=== PATIENT | female | born 1960 | race Caucasian/White ===

== ENCOUNTER 2017-04-06 13:30 | Observation (INO) | payer MEDICARE ==
[~2017-04-06] VITALS: Ht 160 cm; Wt 76.8 kg
[~2017-04-06 13:30] MED LIST: ALBU8.5H2 INHALATION; ATEN50TA PO; ATOR10TA66 PO; BECL8.7A6 IH; HYDR-3740 PO; LEVO150T46 PO; LORA2TAB PO; METF1000 PO; METF500T7 PO; MORP-33 PO; RANI150C4 PO; ROB500 PO; TRAZ-115 PO; marijuana
[2017-04-06 13:35] VITALS: BP 105/55; PULSE 78; RESP 15; O2SAT 99
--- NOTE | 2017-04-06 14:28 | DRSVH ---
PROCEDURE: X-RAY CHEST, TWO VIEWS ([id number]) INDICATIONS: SYNCOPE TECHNIQUE: 2 views of the chest were acquired. COMPARISON: 09/21/2015 FINDINGS: Surgical changes and devices: None. Lungs and pleura: No pleural effusions or pneumothorax. Lungs are clear. Mediastinum: Mediastinal contours are normal. Heart size is normal. Bones and chest wall: No suspicious bony abnormalities. Soft tissues appear unremarkable. IMPRESSION: No acute cardiopulmonary abnormality Dictated by: Richard Bui M.D. on 04/06/2017 at 14:25 Approved by: Richard Bui M.D. on 04/06/2017 at 14:26
[2017-04-06 14:33] LABS: EOSINOPHILS % (AUTO) 3.2 % (0-5); MONOCYTES % (AUTO) 8.1 % (4-12); Mean Corpuscular Hemoglobin 31.5 pg (27.0-35.0); Mean Corpuscular Volume 92.3 fL (81-100); NEUTROPHILS % (AUTO) 59.9 % (40-74); Platelet Count 351 bil/L (150-400)
[2017-04-06 14:52] LABS: TROPONIN T < 0.010 ug/L (0.0-0.011)
--- NOTE | 2017-04-06 15:02 | ED.REPORT ---
HPI-General Illness Date of Service Apr 06, 2017 ED Provider: James Lao MD A 56 year old female with a history of frequent GLF's and syncopal episodes, hypertension, diabetes mellitus, COPD, hypothyroidism, asthma and frequent UTI' s presents to the ED with right hip pain secondary to a syncopal episode resulting in a GLF that occurred last night. Patient reports several previous similar syncopal episodes that have been occurring for the past year and have become increasingly more frequent. The patient endorses chest tightness prior to her episode last night. Her episodes of syncope are often associated with weakness, lightheadedness, LOC and loss of memory. Recent cardiac workup one year ago was negative. Activity exacerbates the pain in her hip. The patient was seen at Urgent Care this afternoon and was sent to the ED for further evaluation. Patient also reports a recent cough and runny nose that began two weeks ago. She denies any nausea or vomiting associated with the episodes. Patient denies history of urinary retention bladder or bowel incontinence. Nursing Notes Stated Complaint: SYNCOPE Chief Complaint: General Complaint Nursing Notes Reviewed: Yes Allergies: Coded Allergies: Adhesives (Verified Allergy, Severe, skin tears/ blisters, 09/21/15) latex (Verified Allergy, Severe, blisters / skin tears, 09/21/15) piroxicam (Verified Allergy, Unknown, 04/05/16) acetaminophen (Verified Adverse Reaction, Unknown, 04/05/16) celecoxib (Verified Adverse Reaction, Unknown, 04/05/16) oxycodone (Verified Adverse Reaction, Unknown, 04/05/16) Uncoded Allergies: OFF spray (Allergy, Unknown, 06/25/14) Scheduled Albuterol HFA (Proair HFA) 8.5 Gm Hfa.aer.ad 2 PUFFS INHALATION Q4H Atorvastatin Calcium (Atorvastatin Calcium) 10 Mg Tablet 10 MG PO DAILY Beclomethasone Dipropionate (Qvar) 8.7 Gm Aer.w.adap 8.7 GM IH BID Levothyroxine (Levoxyl) 150 Mcg Tablet 150 MCG PO DAILY Lorazepam (Lorazepam) 2 Mg Tablet 2 MG PO TID Metformin (Glucophage) 1,000 Mg Tablet 1,500 MG PO DAILYWD before dinner Metformin ER (Metformin ER) 500 Mg Tab 1,000 MG PO DAILY Morphine Sulfate ER (Morphine Sulfate ER) 30 Mg Tablet 30 MG PO Q12Hr Ranitidine (Ranitidine) 150 Mg Capsule 150 MG PO BID Trazodone (Trazodone) 50 Mg Tablet 5 TAB PO HS Scheduled PRN Methocarbamol (Methocarbamol) 500 Mg Tablet 1-2 TAB PO QID PRN PRN For Spasm Miscellaneous Medications ([marijuana]) Atenolol (Atenolol) 50 Mg Tablet 50 MG PO Hydrocodone-Acetaminophen 10-325 mg (Hydrocodone-Acetaminophen 10-325 mg) 1 Each Tablet 1 TABLET PO General Time Seen by MD: 14:36 Chief Complaint Other (Syncope) Hx Obtained From: Patient Arrived By: Walk-in Sudden in Onset?: No Onset Occurred: Yesterday Symptom Duration: 1 - 15 minutes Location: : Hip right Quality: Painful Radiation: : Does not radiate Severity: Current: Moderate Severity: Maximum: Moderate Associated with: Reports: Cough, Nasal discharge, Syncope, Denies: Chest pain, Shortness of breath Pertinent Negative: Pt denies other symptoms Exacerbated by: Moving affected area, Standing up Recent Healthcare: No recent hospitalization, Recent doctor visit Past Medical History Past Medical History 1. Hypertension 2. Diabetes Mellitus 3. COPD 4. Hypothyroidism 5. Frequent UTI's 6. Asthma 7. Anxiety 8. Arthritis 9. Kidney stones 10. Cataracts 11. Frequent syncopal episodes No History of urinary retention or bladder Past Surgical History Endometriosis x4 Reports: Hysterectomy Smoking History Light Tobacco Smoker Social History Alcohol Use: Denies alcohol use Drug Use: Denies drug use Other Social History: Local resident Ambulatory Status Independent Review of Systems Full Review of Systems Constitutional: Denies: Fever Respiratory: Reports: Non-productive cough, Denies: Shortness of breath Cardiovascular: Reports: Chest pain, Palpitations, Syncope GI: Denies: Abdominal pain, Nausea, Vomiting Female: Denies: Incontinence, Urinary frequency, Urination decreased Musculoskeletal: Reports: Joint pain (Right hip pain) Endocrine: Denies: Weight loss Skin: Denies Unexplained bruises Allergy / Immune: Reports: Rhinorrhea Neurologic: Reports: Change LOC, Lightheaded, Syncope, Weakness Psychiatric: Reports: Anxiety Complete sys rev & neg: except as marked. Physical Exam Nursing note and vitals reviewed. Constitutional: Well-developed, well-nourished. Not diaphoretic. Head: Normocephalic and atraumatic. Mouth/Throat: Oropharynx is clear and moist. No oropharyngeal exudate. Eyes: EOM are normal. Pupils are equal, round, and reactive to light. Neck: Supple, no tracheal deviation. Cardiovascular: Normal rate, regular rhythm. Equal and intact distal pulses throughout. No murmur. Pulmonary/Chest: Effort normal and clear breath sounds. No respiratory distress. Abdominal: Soft. No distension. There is no tenderness, rebound, or guarding. Bowel sounds present. Musculoskeletal: Range of motion grossly intact, moving all extremities. Mild right hip and coccyx tenderness without evidence of bruising or hematoma. No edema appreciated. Pelvis is stable. Neurological: AOx3. Grossly nonfocal exam. Strength and sensation intact and equal to bilateral upper and lower extremities. Skin: Warm and dry, no rashes or pallor appreciated. Psychiatric: Appropriate mood and affect. Behavior appears normal. Vital Signs Vital Signs Date Time Temp Pulse Resp B/P Pulse Ox O2 Delivery O2 Flow Rate FiO2 04/06/17 17:16 63 16 109/41 98 Room Air 04/06/17 13:35 36.2 78 15 105/55 99 Room Air Interpretation & Diagnostics Lab Results Interpretation Result Diagram: 04/06/17 1420 04/06/17 1420 Test 04/06/17 14:20 White Blood Count 9.7th/mm3 (3.8-10.1) Red Blood Count 4.44mil/mm3 (3.90-5.20) Hemoglobin 14.0g/dL (12.0-15.6) Hematocrit 41.0% (35.0-46.0) Mean Corpuscular Volume 92.3fL (81-100) Mean Corpuscular Hemoglobin 31.5pg (27.0-35.0) Mean Corpuscular Hemoglobin Concent 34.1% (32.0-37.0) Red Cell Distribution Width 12.8% (12.3-15.4) Platelet Count 351bil/L (150-400) Neutrophils (%) (Auto) 59.9% (40-74) Lymphocytes (%) (Auto) 27.5% (14-46) Monocytes (%) (Auto) 8.1% (4-12) Eosinophils (%) (Auto) 3.2% (0-5) Basophils (%) (Auto) 1.0% (0-3) Sodium Level 139mEq/L (134-144) Potassium Level 4.0mEq/L (3.5-5.2) Chloride Level 102mEq/L (97-108) Carbon Dioxide Level 24mmol/L (18-29) Blood Urea Nitrogen 20mg/dL (6-24) Creatinine 0.86mg/dL (0.57-1.00) Estimat Glomerular Filtration Rate 98mL/min (>59) Glucose Level 130mg/dL (60-99) Calcium Level 9.6mg/dL (8.5-10.1) Magnesium Level 1.8mg/dL (1.6-2.6) Total Bilirubin 0.4mg/dL (0.0-1.2) Aspartate Amino Transf (AST/SGOT) 11U/L (0-50) Alanine Aminotransferase (ALT/SGPT) 8U/L (0-32) Alkaline Phosphatase 82U/L (25-150) Troponin T < 0.010ug/L (0.0-0.011) Total Protein 7.9g/dL (6.4-8.4) Albumin 4.4g/dL (3.4-5.0) Thyroid Stimulating Hormone (TSH) 15.900uIU/mL (0.450-4.500) Free Thyroxine 1.20ng/dL (0.82-1.77) ECG Interpretation ECG Interpretation: Normal sinus rhythm No acute ischemic changes Time: 15:23 Interpreted by: ED physician X-Ray Chest Interpretation Chest Xray Interpretation: IMPRESSION: No acute cardiopulmonary abnormality Dictated by: Richard Bui M.D. on 04/06/2017 at 14:25 Interpretation / Wet Read by: Interpret - Radiologist X-Ray Interpretation Xray Interpretation: IMPRESSION: No fracture. No acute osseous lesion. If symptoms and/or clinical suspicion for pathology persists, further assessment with repeat radiographs or advanced imaging (e.g. CT, MRI or bone scan) may be helpful for further assessment. Dictated by: Kym Weston MD, PhD on 04/06/2017 at 16:35 X-Ray Ordered: Hip right Interpretation / Wet Read by: Interpret - Radiologist CT Head Interpretation IMPRESSION: 1. No acute intracranial hemorrhage. 2. Small mucosal polyp versus mucous retention cyst of the right maxillary sinus. Dictated by: Aram Vera M.D. on 04/06/2017 at 15:24 Study: Head CT no contrast Interpretation / Wet Read by: Interpret - Radiologist Re-Eval/Medical Decision Med Decision/Clinical Course In summary, 56-year-old female presenting to the ED for evaluation of syncopal episodes that have been increasing in frequency over the past several days. Differential is broad and includes vasovagal event, orthostatic syncope, dysrhythmia, ACS, aortic stenosis, metabolic abnormality, CVA, etc. Grossly nonfocal neurologic exam, noncontrast head CT negative for acute abnormality. Laboratory studies demonstrate a grossly normal CBC and CMP; TSH 15.9, however free T4 within normal limits. Unclear if there is some subclinical hyperthyroidism contributing, however seems unlikely to be entirely responsible for her symptoms. EKG with no acute ischemic changes, troponin negative. Echocardiogram last year demonstrated a calcified aortic leaflet with no stenosis or regurgitation. Low risk by Well's criteria for PE. Patient reliably states that she is having chest pain prior to these episodes, as well as palpitations. The ED on telemetry, no evidence of a dysrhythmia at this time. No murmur on exam. She is not having classic vasovagal or orthostatic symptoms. Unclear etiology for her episodes, however given her increasing frequency and says she is with chest pain, I discussed the patient with cardiology as per below. Appreciate recommendations. She will be admitted overnight for telemetry, treadmill stress test, and echocardiogram. With respect to her fall, she has no bowel or bladder continence, urinary retention. X-rays negative for acute fracture. Discussed with the hospitalist, who will admit for further evaluation and management. Patien is agreeable to the plan as stated, no further questions. Time of Eval: 16:59 Patient Status: Condition improved Re-Evaluation/Progress Note: Pain has improved. She agrees to follow up with her PCP for further evaluation this week. Patient is agreeable to discharge at this time. Consultation : Referral / Consult Name: Ubaldo Verdugo MD Consulted With: Cardiology Call Returned at: 17:05 Dynamotor Repairer: Will see patient, Agrees with eval, Agrees with plan Note: Recommends repeat echocardiogram tomorrow. Counseled Regarding: Diagnosis, Lab results, Need for admission Discharge & Departure Primary Impression: Syncope Syncope type: unspecified Qualified Code: R55 - Syncope and collapse Additional Impression: Chest pain Chest pain type: unspecified Qualified Code: R07.9 - Chest pain, unspecified Disposition: ADMITTED TO HOSPITAL Discharge Condition All VS Reviewed: Yes Condition: Improved Referrals: Sravanthi Escalera MD (PCP) Praveena Attestation Portions of this note were transcribed by Bina Conrad. Dr. Tashia Stone personally performed the history, physical exam and medical decision-making; I reviewed and confirmed the accuracy of the information in the transcribed note. Signed by: Praveena Wild, 04/06/17 [id number]. copies to: Sravanthi Escalera MD, William B MD Apr 06, 2017 15:02 BINA CONRAD Apr 06, 2017 15:07 Discharge Condition All VS Reviewed: Yes Condition: Improved Referrals: Sravanthi Escalera MD (PCP) Praveena Attestation Portions of this note were transcribed by Bina Conrad. Dr. Tashia Stone personally performed the history, physical exam and medical decision-making; I reviewed and confirmed the accuracy of the information in the transcribed note. Signed by: Praveena Wild, 04/06/17 [id number]. copies to: Sravanthi Escalera MD, William B MD Apr 06, 2017 15:02 BINA CONRAD Apr 06, 2017 15:07
[2017-04-06 15:03] LABS: Magnesium 1.8 mg/dL (1.6-2.6)
[2017-04-06] MEDS ORDERED: HYDROcodone-APAP 10-325 mg PO ONE (15:05)
[2017-04-06] MEDS ORDERED: HYDROmorphone 1 mg/mL Inj IVPUSH ONE (15:45)
--- NOTE | 2017-04-06 16:30 | DRSVH ---
PROCEDURE: CT BRAIN WITHOUT CONTRAST ([id number]) INDICATIONS: recurrent syncope, LOC TECHNIQUE: Noncontrast 4.5 mm thick angled axial sections acquired from the foramen magnum to the vertex, with c oronal reformats. COMPARISON: None. FINDINGS: Image quality: Diagnostic. Brain: There is no acute intra-axial or extra-axial hemorrhage. No extra-axial fluid collection is i dentified. There is no midline shift or mass effect. The orbits are grossly unremarkable. No large areas of diffusely decreased attenuation are evident within the brain to suggest diffuse cer ebral edema. No focal parenchymal abnormality is identified. The ventricles and cortical sulci are age-appropriate. Bones: Calvarium and visualized facial bones are grossly intact. Small mucosal polyp versus mucous r etention cyst of the right maxillary sinus. Otherwise, the imaged paranasal sinuses and mastoid air c ells are clear. IMPRESSION: 1. No acute intracranial hemorrhage. 2. Small mucosal polyp versus mucous retention cyst of the right maxillary sinus. Dictated by: Aram Vera M.D. on 04/06/2017 at 15:24 Approved by: Aram Vera M.D. on 04/06/2017 at 15:29
--- NOTE | 2017-04-06 16:39 | DRSVH ---
PROCEDURE: X-RAY PELVIS W/LAT HIP (RT) ([id number]) INDICATIONS: fall; hip, tailbone pain TECHNIQUE: AP pelvis with lateral view(s) of the right hip(s). COMPARISON: [facility], CT, ABD/PELVIS W/CON (PNL), 06/25/2014, 18:38. FINDINGS: Bones: No fractures or dislocations. Pelvic ring appears intact. No suspicious bony lesions. Soft tissues: The visualized bowel gas pattern is normal. No suspicious soft tissue calcifications. Small metallic foreign body projects over the left hemipelvis which is grossly stable compared to pr ior CT scan. IMPRESSION: No fracture. No acute osseous lesion. If symptoms and/or clinical suspicion for patholog y persists, further assessment with repeat radiographs or advanced imaging (e.g. CT, MRI or bone scan ) may be helpful for further assessment. Dictated by: Kym Weston MD, PhD on 04/06/2017 at 16:35 Approved by: Kym Weston MD, PhD on 04/06/2017 at 16:37
[2017-04-06 17:16] VITALS: BP 109/41; PULSE 63; RESP 16; O2SAT 98
[2017-04-06] MEDS ORDERED: METF1000 PO (17:40)
[2017-04-06] MEDS ORDERED: LOSA25TA21 PO (17:40)
[2017-04-06] MEDS ORDERED: ALBU18HF INH (17:44)
[2017-04-06] MEDS ORDERED: METH750T3 PO (17:44)
[2017-04-06] MEDS ORDERED: TRAZ-118 PO (17:46)
[2017-04-06] MEDS ORDERED: RANI150C4 PO (17:46)
[2017-04-06] MEDS ORDERED: Alum-Mag Hydrox-Simeth 30 mL Suspension PO PRN (17:50)
[2017-04-06] MEDS ORDERED: Polyethylene Glycol (PEG) 17 Gm Powder PO PRN (17:50)
[2017-04-06] MEDS ORDERED: Senna-Docusate 8.6-50 mg Tablet PO PRN (17:50)
[2017-04-06] MEDS ORDERED: Ondansetron 2 mg/mL 2 mL Inj IVPUSH PRN (17:50)
--- NOTE | 2017-04-06 18:10 | PCM.HPMED ---
Subjective Date of Service Apr 06, 2017 Primary Provider: Admitting Physician: Vadim Granados MD Primary Care Physician: Sravanthi Escalera MD Attending Physician: Vadim Granados MD Chief Complaint: Syncope History of Present Illness: Denise Bower is a 56 year old woman with past medical history significant for diabetes, spinal stenosis, hypertension, hyperlipidemia, COPD, hypothyroidism who presented to the [facility] ED today due to syncopal episode today resulting in a ground level fall. The patient notes that she has been having syncopal episodes last couple of years. Previously she had 1-3 episodes of syncope per year but in the last couple of months she has noticed that she has had more frequent episodes. In the last month she is actually high at 8 syncopal episodes. During my interview she denied any dizziness when she transitions from seated to standing or from laying to sitting up however stated other physicians that she has felt "woozy." Patient is also noted that she has been having chest pain before and after the episodes that is mid chest and moderate to severe. She has also noticed palpitations, skipped beats, irregular heartbeat as well as headache, vision changes, a "whooshing" sensation in her head. She also notes that she has had diaphoresis, nausea, shortness of breath. She also notes that she gets lower leg cramps when she walks up the stairs or up a hill. She has also noticed that she has felt overall weak with lightheadedness and loss of memory. She had a cardiac workup one year was negative. Patient underwent a transesophageal echo which showed largely normal heart. Patient suffered a fall from her last syncopal episode and hit her hip and her back. In the emergency department her vital signs were notable for a blood pressure of 105/55. CT of brain, x-ray of hips and x-ray of chest were all negative for acute processes. Patient was given Dilaudid for pain. Dr. Verdugo was contacted by the ED physician and recommended a cardiac workup. Review of Systems: A comprehensive review of systems is negative except as noted above in the history of present illness. Allergies Coded Allergies: Adhesives (Verified Allergy, Severe, skin tears/ blisters, 09/21/15) latex (Verified Allergy, Severe, blisters / skin tears, 09/21/15) piroxicam (Verified Allergy, Unknown, 04/05/16) acetaminophen (Verified Adverse Reaction, Mild, nausea x1, 04/06/17) oxycodone (Verified Adverse Reaction, Mild, nausea x 1, 04/06/17) celecoxib (Verified Adverse Reaction, Unknown, 04/05/16) Uncoded Allergies: OFF spray (Allergy, Unknown, 06/25/14) Home Medications Denise Bower. [id number] 04/06/2017 12:00 PM 09/20 Start Date Medication Directions 06/30/2014 1st Tier Unilet ComforTouch Lancet 30 gauge To check sugars twice daily 06/15/2016 ATENOLOL 50MG TAB TABLET TAKE ONE TABLET BY MOUTH TWICE DAILY 11/28/2016 atorvastatin 20 mg tablet take 0.5 tablet by oral route every day 10/15/2016 LEVOTHYROXINE 150MCG TABS TABLET TAKE ONE TABLET BY MOUTH ONCE DAILY 03/15/2017 lorazepam 2 mg tablet take 1 tablet (2MG) by ORAL route 3 times every day 09/05/2016 losartan 25 mg tablet take 1 tablet by oral route every evening may increase to 2 tablets daily after 10 days if blood pressures not below 130/80 06/07/2016 Marijuana Medical authorization for uncontrolled pain 06/15/2016 METFORMIN 1000MG TABLET TAKE ONE TABLET BY MOUTH IN THE MORNING AN 1& &1/2 TABS IN THE EVENING BEFORE MEALS 02/01/2017 methocarbamol 750 mg tablet take 1 tablet by oral route 4 times every day as needed for muscle spasm 03/15/2017 [place] 10 mg-325 mg tablet take 1 to 2 tablets by ORAL route up to every 6 hours as needed for pain. MAX 7 per day 04/13/2017 [place] 10 mg-325 mg tablet take 1 to 2 tablets by ORAL route up to every 6 hours as needed for pain. MAX 7 per day 05/27/2015 Qvar 80 mcg/actuation Metered Aerosol oral inhaler inhale 2 puff by inhalation route 2 times every day 11/28/2016 ranitidine 150 mg capsule take 1 capsule by oral route 2 times every day 06/15/2016 TRAZODONE 100MG TABLET TAKE 2 AND 1/2 TABLETS BY MOUTH ONCE DAILY AT BEDTIME 05/19/2016 VENTOLIN HFA INHALER MG INHALANT INHALE 2 PUFFS BY MOUTH EVERY 4-6 HOURS NEEDED PMH Obesity Hyperlipidemia Hypothyroidism Chronic airway obstruction Diabetes Esophageal reflux Spinal stenosis Dysthymic disorder Surgical History Ventral hernia repair Hysterectomy Family History Patient's sister suffers from substance abuse. Social History Hx Alcohol Use: No Hx Substance Use: Yes (MJ for pain managment - PCP ordered) Hx Tobacco Use: Yes Smoking Status: Current Every Day Smoker, Heavy Tobacco Smoker Exam Vital Signs Vital Sign - Last Date Time Temp Pulse Resp B/P Pulse Ox O2 Delivery O2 Flow Rate FiO2 04/06/17 17:16 63 16 109/41 98 Room Air 04/06/17 13:35 36.2 Exam General: No acute distress, well-developed, well-nourished, appropriately interactive, appears older than stated age. HEENT: Normocephalic, atraumatic. External ears without defect. Pupils equal, round, and reactive to light and accommodation. Anicteric sclerae, moist conjunctivae, and no lid lag. Oropharynx free of erythema and cobble stoning with moist mucosa. Neck: Supple with full range of motion. No jugular venous distension. No bruits. No lymphadenopathy or thyromegaly. Cardiovascular: Regular rate and rhythm with no murmurs, rubs, or gallops appreciated. Pulmonary: Wheeze appreciated at the left mid lung. Normal respiratory effort with no use of accessory muscles. Abdomen: Bowel tones present. Soft, nontender, nondistended. No hepatosplenomegaly or masses appreciated. Extremities: No clubbing, cyanosis, edema, or lymphadenopathy appreciated. Skin: Normal temperature, turgor, and texture; no rash, ulcers, or subcutaneous nodules appreciated. Neurological: Cranial nerves grossly intact. Normal muscle strength, tone, and bulk. Reflexes, coordination, and sensory function within normal limits. No known gait impairment. Psychiatric: Normal mood and affect. Alert and oriented to person, place, and time. Lab and Diagnostics Result Diagram: 04/06/17 1420 04/06/17 1420 X-Rays, CTs and MRIs X-RAY CHEST, TWO VIEWS IMPRESSION: No acute cardiopulmonary abnormality Dictated by: Richard Bui M.D. on 04/06/2017 at 14:25 X-RAY PELVIS W/LAT HIP IMPRESSION: No fracture. No acute osseous lesion. If symptoms and/or clinical suspicion for pathology persists, further assessment with repeat radiographs or advanced imaging (e.g. CT, MRI or bone scan) may be helpful for further assessment. Dictated by: Kym Weston MD, PhD on 04/06/2017 at 16:35 CT BRAIN WITHOUT CONTRAST IMPRESSION: 1. No acute intracranial hemorrhage. 2. Small mucosal polyp versus mucous retention cyst of the right maxillary sinus. Dictated by: Aram Vera M.D. on 04/06/2017 at 15:24 Assessment & Plan Denise Bower is a 56 year old woman with past medical history significant for diabetes, spinal stenosis, hypertension, hyperlipidemia, COPD, hypothyroidism who presented to the [facility] ED today due to syncopal episode today resulting in a ground level fall. #Suspected Cardiogenic syncope, present on admission, active -Telemetry monitoring -ECHO tomorrow -Stress test in AM -Orthostatic vitals -May need Holter monitor upon discharge #Chest pain, typical, present on admission, active -Risk factors include hypertesnion, hyperlipidemia, smoking. Diabetes is a CAD equivalent. -A1C, lipid panel -Telemetry -ECHO -Stress test -EKG PRN pain -NTG -Morphine PRN pain -NPO after midnight -Hold beta ponce for stress test -Aspirin 81 mg -Continue statin -Consider cardiology consultation #Ground level fall secondary to syncope, present on admission, active -Management as above Chronic issues, present on admission, stable: #Hypertension -May be orthostatic, will hold blood pressure medications at this time. #Hyperlipidemia -Continue statin #COPD, not in exacerbation -Continue home medications #Dysthimia -Continue home medications #Diabetes mellitus -Hold PO medications -Monitor glucose CODE STATUS; FULL CODE Patient is admitted under observation status with anticipated length of stay <2 midnights due to severity of symptoms. Resuscitation Status: CPR: Attempt Resuscitation Attending Statement Patient was seen and examined with resident on 04/06/17, I agree with the history, exam, assessment and plan as outlined above copies to: Sravanthi Escalera MD, Viktoriya DO Apr 06, 2017 18:10 Vadim Granados MD Apr 07, 2017 09:04
[2017-04-06 18:15] VITALS: BP 104/62; PULSE 67; RESP 18; O2SAT 97
--- NOTE | 2017-04-06 18:16 | NUR ---
Admit [facility] Pt arrived on [facility] approx 1809 with all belongings, A&Ox3, SL, on RA, reporting anxiety and requesting medication. PUBLIC TRANSIT SPECIALIST checking pt in now, admission questions & med reconciliation completed by admit nurse. Care continues Addendum: 04/06/17 at 1849 by JENSEN STEVENSON RN pt reports no CP upon arrival to floor, medications have been ordered by hospitalist
[2017-04-06 18:21] LABS: Creatine Kinase 47 U/L (21-215)
[2017-04-06 18:23] VITALS: PULSE 70
[2017-04-06] MEDS: LORazepam 2 mg Tablet PO SCH (19:34)
[2017-04-06] MEDS ORDERED: Albuterol 2.5 mg/3 mL Inhalation Solution NEB PRN (20:00)
[2017-04-06] MEDS: HYDROcodone-APAP 10-325 mg PO PRN (20:02)
[2017-04-06] MEDS: Fluticasone 100 mCg Inhaler INHALATION SCH (20:02)
[2017-04-06 20:48] VITALS: BP 112/69; PULSE 64; RESP 18; O2SAT 98
[2017-04-07] VITALS (10 sets, daily range): BP systolic 104–137; BP diastolic 64–89; PULSE 62–82; RESP 16–18; O2SAT 94–97
[2017-04-07 00:57] LABS: Creatine Kinase 45 U/L (21-215)
[2017-04-07] MEDS: Sodium Chloride LOK Flush 10 mL Syringe IVFLUSH SCH ×3 (01:21→16:30)
[2017-04-07] MEDS: HYDROcodone-APAP 10-325 mg PO PRN ×4 (02:26→20:28)
[2017-04-07 06:28] LABS: BASOPHILS % (AUTO) 1.2 % (0-3); EOSINOPHILS % (AUTO) 5.4 % (0-5); MONOCYTES % (AUTO) 7.9 % (4-12); Mean Corpuscular Hemoglobin 31.7 pg (27.0-35.0); NEUTROPHILS % (AUTO) 51.2 % (40-74); Platelet Count 278 bil/L (150-400)
[2017-04-07] MEDS: LORazepam 2 mg Tablet PO SCH ×2 (07:54→14:35)
[2017-04-07] MEDS: Fluticasone 100 mCg Inhaler INHALATION SCH ×2 (07:56→20:27)
--- NOTE | 2017-04-07 10:53 | NUR ---
Orthostatic positive Pt is positive for orthostatic BP, notified
--- NOTE | 2017-04-07 12:33 | NUR ---
DASHA explained and signed. Copy of LOU given to pt.
--- NOTE | 2017-04-07 12:56 | NUR ---
Resumed care from Dl Augustin
--- NOTE | 2017-04-07 14:23 | PCM.PNMED ---
Subjective Date of Service Apr 07, 2017 Subjective Patient continues to have orthostatic lightheadedness. orthostatic BP changes noted from sitting to standing. Stress test abnormal and resting phases images pending for tomorrow. No arrythmia on monitoring Exam Vital Signs Vital Sign - Last Date Time Temp Pulse Resp B/P Pulse Ox O2 Delivery O2 Flow Rate FiO2 04/07/17 13:17 36.7 69 16 117/70 94 Room Air Intake and Output 04/06/17 04/06/17 04/07/17 Cumulative From/Thru 15:00 23:00 07:00 04/06/17 13:35 - 04/07/17 06:46 Intake Total 0 ml 0 ml Output Total 800 ml 800 ml Balance -800 ml -800 ml Intake Oral 0 ml 0 ml Output Urine Total 800 ml 800 ml Exam General: No acute distress, well-developed, well-nourished, appropriately interactive, appears older than stated age. HEENT: Normocephalic, atraumatic. External ears without defect. Pupils equal, round, and reactive to light and accommodation. Anicteric sclerae, moist conjunctivae, and no lid lag. Oropharynx free of erythema and cobble stoning with moist mucosa. Neck: Supple with full range of motion. No jugular venous distension. No bruits. No lymphadenopathy or thyromegaly. Cardiovascular: Regular rate and rhythm with no murmurs, rubs, or gallops appreciated. Pulmonary: Wheeze appreciated at the left mid lung. Normal respiratory effort with no use of accessory muscles. Abdomen: Bowel tones present. Soft, nontender, nondistended. No hepatosplenomegaly or masses appreciated. Extremities: No clubbing, cyanosis, edema, or lymphadenopathy appreciated. Skin: Normal temperature, turgor, and texture; no rash, ulcers, or subcutaneous nodules appreciated. Neurological: Cranial nerves grossly intact. Normal muscle strength, tone, and bulk. Reflexes, coordination, and sensory function within normal limits. No known gait impairment. Psychiatric: Normal mood and affect. Alert and oriented to person, place, and time. IVs and Medications Medications Reviewed: Medications were reviewed in detail Lab and Diagnostics Result Diagram: 04/07/17 0558 04/07/17 0558 X-Rays, CTs and MRIs X-RAY CHEST, TWO VIEWS IMPRESSION: No acute cardiopulmonary abnormality Dictated by: Richard Bui M.D. on 04/06/2017 at 14:25 X-RAY PELVIS W/LAT HIP IMPRESSION: No fracture. No acute osseous lesion. If symptoms and/or clinical suspicion for pathology persists, further assessment with repeat radiographs or advanced imaging (e.g. CT, MRI or bone scan) may be helpful for further assessment. Dictated by: Kym Weston MD, PhD on 04/06/2017 at 16:35 CT BRAIN WITHOUT CONTRAST IMPRESSION: 1. No acute intracranial hemorrhage. 2. Small mucosal polyp versus mucous retention cyst of the right maxillary sinus. Dictated by: rAam Vera M.D. on 04/06/2017 at 15:24 Cardiac Echo Impressions Interpretation Summary The left ventricle is normal in size, wall thickness, and systolic function without any focal wall motion abnormalities. The ejection fraction is estimated to be 60-65%. Assessment of diastolic parameters indicates a relaxation abnormality of the left ventricle, consistent with normal filling pressures. The right ventricle is normal in size, thickness and function. Pulmonary artery pressures cannot be estimated because of the lack of a measurable TR jet velocity. The left atrial size is normal. Right atrial size is normal. There is no significant valvular heart disease. The aortic root is normal size. No significant changes since prior study on 03/07/2016. Assessment & Plan Denise Bower is a 56 year old woman with past medical history significant for diabetes, spinal stenosis, hypertension, hyperlipidemia, COPD, hypothyroidism who presented to the [facility] ED today due to syncopal episode today resulting in a ground level fall. #Suspected Cardiogenic syncope, present on admission, active -Telemetry monitoring, revealing so far -ECHO unchanged from prior -Stress test some defect , resting phase images for tomorrow -Orthostatic vitals. Sitting :BP 137/89, HR 65 standing: BP 116/71,SBP by 21 from sitting to standing. Discontinue losartan. Will advise on workup of dysautonomia outpatient and may need to use stockings if symptoms not controlled off losartan -May need Holter monitor upon discharge #Chest pain, typical, present on admission, active -Risk factors include hypertesnion, hyperlipidemia, smoking. Diabetes is a CAD equivalent. Workup as above -Hold beta ponce for stress test -Aspirin 81 mg -Continue statin -A1C 7.2 -Discussed case with cardiology #Ground level fall secondary to syncope, present on admission, active -Management as above Chronic issues, present on admission, stable: #Hypertension -May be orthostatic, will hold blood pressure medications at this time. #Hyperlipidemia -Continue statin #COPD, not in exacerbation -Continue home medications #Dysthimia -Continue home medications #Diabetes mellitus -Hold PO medications -Monitor glucose CODE STATUS; FULL CODE Patient is admitted under observation status with anticipated length of stay <2 midnights due to severity of symptoms. Possible discharge tomorrow resting phase image Resuscitation Status: CPR: Attempt Resuscitation Vadim Granados MD Apr 07, 2017 14:23
--- NOTE | 2017-04-07 15:29 | DRSVH ---
[facility] [address] [place] [place] [address] Echocardiogram Report Name: RAH MONTERO LStudy Date: 04/07/2017 Height: 63 in Hospital Exam Location: [facility] Weight: 169 lb Gender: Female BSA: 1.8 m2 : 1960 Age: 56 yrs BP: 105/64 m mHg Reason For Study: Chest pain Ordering Physician: Dale Alston Performed By: Sekou Huffman Referring Physician: SAM STANLEY Interpretation Summary The left ventricle is normal in size, wall thickness, and systolic function without any focal wall motion abnormalities. The ejection fraction is estimated to be 60-65%. Assessment of diastolic parameters indicates a relaxation abnormality of the left ventricle, consistent with normal filling pressures. The right ventricle is normal in size, thickness and function. Pulmonary artery pressures cannot be estimated because of the lack of a measurable TR jet velocity. The left atrial size is normal. Right atrial size is normal. There is no significant valvular heart disease. The aortic root is normal size. No significant changes since prior study on 03/07/2016. Procedure: A two-dimensional transthoracic echocardiogram with color flow and Doppler was performed. The study quality was technically adequate. Comparison is made with the echocardiogram of 04/05/16. The patient was in normal sinus rhythm during the exam. Left Ventricle: The left ventricle is normal in size, wall thickness, and systolic function without any focal wall motion abnormalities. The ejection fraction is estimated to be 60-65%. Assessment of diastolic parameters indicates a relaxation abnormality of the left ventricle, consistent with normal filling pressures. Right Ventricle: The right ventricle is normal in size, thickness and function. Atria: The left atrial size is normal. Right atrial size is normal. The interatrial septum is intact with no evidence for an atrial septal defect. Mitral Valve: There is mild mitral annular calcification. The mitral valve leaflets are mildly calcified. There is trace mitral regurgitation. Aortic Valve: The aortic valve is trileaflet. There is a small calcification on the left coronary cusp that was seen on prior exams. There is no aortic valve stenosis. No aortic regurgitation is present. Tricuspid Valve: The tricuspid valve is normal. Pulmonary artery pressures cannot be estimated because of the lack of a measurable TR jet velocity. Pulmonic Valve: The pulmonic valve is not well visualized. There is no significant valvular heart disease. Great Vessels: The aortic root is normal size. The ascending aorta could not be visualized. The pulmonary artery is not well visualized, but is probably normal size. The IVC is of normal diameter and collapses greater than 50% with a sniff. This suggests a low right atrial pressure of 3 mm Hg. Pericardium/ Pleura There is no pericardial effusion. There is no pleural effusion. MMode/2D Measurements & Calculations LVIDd: 4.4 cm RA area LVOT diam: 1.9 cm LVIDs: 2.9 cm LA A2 area: 16.7 cm AoV Openin.3 cm FS: 33.0 % LA A4 area: 17.7 cm : 8.4 2m Ao root diam EPSS: 0.73 cm LA length (vol) IVSd: 0.94 cm Ao Arch Diam (Prox LVPWd: 0.81 cm LA vol: 47.9 ml Trans): 2.8 cm LA vol index : 26.6 ml/m2 LV watson. diameter/BSA LV sys. diameter/BSA TAPSE (cm/m^2): 2.4 (cm/m^2): 1.6 : 2.1 cm Doppler Measurements & Calculations Ao V2 max: 131.4 cm/secMV E max ayden MV E/A: 0.88 PA V2 max Ao max P.9 mmHg : 80.5 cm/sec Med Peak E' Ayden : 70.6 cm/sec Ao mean P.3 mmHg MV A max ayden PA mean PG LVOT Max Ayden : 91.7 cm/sec E/E' med: 18.2 : 1.2 mmHg : 81.7 cm/sec Lat Peak E' Ayden RAQUEL(I,D): 2.1 cm E/E' lat: 10.8 sev ratio: 0.78 E/e' average MV dec time: 0.23 sec Ao V2 mean LV V1 max PG PA V2 mean : 86.4 cm/sec : 51.6 cm/sec Ao V2 VTI: 25.6 cmLV V1 VTI: 20.0 cm PA pr(Accel) : 25.1 mmHg RAQUEL(V,D): 1.7 cm2 RAQUEL indexed to BSA (cm^2/m^2): 1.2 Reading Physician:MARVA
--- NOTE | 2017-04-07 16:19 | NUR ---
Social Work: Initial Assessment / Multidisciplinary Rounds / Readiness for d/c Data: Pt is a 56 y/o female admitted for syncope, chest pain. Pt's PCP is Dr Escalera, pt's insurance is [employer] [place] Medicare. EMR reviewed. Readmit score is 3, high. Pt discussed in rounds, MD states pt may d/c today or tomorrow after stress test and echo. HEAD PORTER BAGGAGE met with pt at bedside, role explained. Pt states that she lives in [place] alone in a single story home. Pt drives, has no hx of HH or SNF, no LTC or VA benefits, is not a caregiver. No d/c planing needs identified at this time. HEAD PORTER BAGGAGE will continue to follow if needs arise. Assessment: Pt who is independent at baseline, capable of self care at this time. Plan: Pt will d/c home via POV with grandson when medically stable, likely tomorrow. HEAD PORTER BAGGAGE will continue to follow. RENATE Henning Addendum: 04/07/17 at 1621 by GALEN IBRAHIM SS Amended: Links added.
--- NOTE | 2017-04-07 17:31 | NUR ---
Chest pain Denies chest pain. Per cardiac monitor technician sinus in 80's during my shift. Did shower without c/o chest pain. Does continue to require PRN [place] due to chronic pain. Continue frequent monitoring.
--- NOTE | 2017-04-07 18:05 | NUR ---
Transfer Pt transferred to from [facility]. Report received from Sanam Reynaga. Pt denies any chest pain. Pt to go NPO at midnight for resting stress test tomorrow. Pt ind, steady gait in room. Pt tele SR 70s.
[2017-04-07] MEDS: LORazepam 1 mg Tablet PO SCH (20:28)
[2017-04-08] VITALS (7 sets, daily range): BP systolic 100–124; BP diastolic 64–76; PULSE 61–99; RESP 16; O2SAT 96–97
[2017-04-08] MEDS: Sodium Chloride LOK Flush 10 mL Syringe IVFLUSH SCH ×2 (00:37→07:46)
--- NOTE | 2017-04-08 04:57 | NUR ---
Anxiety Pt very anxious in the beginning of the shift, given scheduled ativan and norco, pt. calmed down and able to get some sleep, NPO after midnight for stress test in the morning, pt. aware and cooperative, VSS afebrile, hourly checks, on [address] pe monitoring analyst, call light in reach at all times and will continue to monitor.
--- NOTE | 2017-04-08 07:22 | NUR ---
Stress Test Paged Dr Zurita regarding stress test that was scheduled for today. UA didn't notice it on the schedule. confirmed resting phase is today. Called [facility] to verify they have her on the schedule, left vm.
[2017-04-08] MEDS: LORazepam 1 mg Tablet PO SCH (07:43)
[2017-04-08] MEDS: Fluticasone 100 mCg Inhaler INHALATION SCH (07:46)
[2017-04-08] MEDS: HYDROcodone-APAP 10-325 mg PO PRN (08:52)
--- NOTE | 2017-04-08 09:26 | DRSVH ---
PROCEDURE: 2 DAY STRESS TEST Rest and pharmacological stress myocardial perfusion SPECT with gated imaging and ejection fraction RADIOPHARMACEUTICAL: 21.4 mCi Tc-99m tetrafosmin IV at rest and 20.6 mCi Tc-99m tetrafosmin IV at pea k effect of pharmacological stress. [id number] was performed. INDICATIONS: CP TECHNIQUE: Radiopharmaceutical was injected at peak stress test, and also at rest. SPECT images wer e obtained. SPECT myocardial perfusion images were displayed in short axis, horizontal long axis, an d vertical long axis views. Gated images were reviewed using Auto[employer] software. COMPARISON: None. CARDIAC STRESS: A pharmacologic stress test was performed under the supervision of an attending staff, using an infus ion of Regadenoson. Hemodynamic data: There is normal blood pressure and heart rate response to pharmacologic stress. Symptoms: The patient denied anginal chest pain. Aminophylline: None EKG: No diagnostic changes of ischemia; no ectopy. FINDINGS: Raw data: There is good myocardial uptake of radiotracer. No significant motion artifacts. Left ventricle function: Gated images demonstrate normal left ventricular wall thickening. No segme ntal wall motion abnormalities. Left ventricle resting end diastolic volume is 41 mL. Left ventricl e stress ejection fraction is 88%; normal range is above 45%. Myocardial perfusion: There is a very small with mild intensity perfusion defect in the apical regio n noted during the supine stress imaging. On prior to stress imaging the defect action worsens. On th e resting perfusion study the defect minimally improved. IMPRESSION: Probable borderline abnormal myocardial perfusion study. There is a very small perfusion defect noted in the apical region which slightly improves on resting. This could be consistent with v xavi small amount of ischemia but cannot exclude artifact as well. LV ejection fraction and wall motio n are both within normal limits. Given the size of the perfusion defect in the possibility that this is an artifact, this is a low risk study. Dictated by: Ubaldo Verdugo Jr., M.D. on 04/08/2017 at 9:20 Approved by: Ubaldo Verdugo Jr., M.D. on 04/08/2017 at 9:24
--- NOTE | 2017-04-08 10:12 | PCM.DIMED ---
Discharge Instructions Date of Service Apr 08, 2017 Dates of Hospitalization Apr 06, 2017 at 17:43 Discharge Diagnosis Discharge Diagnosis #Recurrent syncope of unclear etiology, probably due to antihypertensive, present on admission, active Orthostatics positive. Discontinued losartan #Chest pain, typical, present on admission, active ACS ruled out #Ground level fall secondary to syncope, present on admission, active Chronic issues, present on admission, stable: #Hypertension #Hyperlipidemia #COPD, not in exacerbation #Dysthimia #Diabetes mellitus Test Results Test Results stress test borderline abnormal Echocardiogram unchanged from prior study Diet Discharge Diet: Low fat, Low Sodium, Heart Healthy Activity Discharge Activity: Limited until seen by PCP Call your provider Call your provider for: Fever or Chills, Shortness of breath, Bleeding, Chest pain, Vomitting, Excessive diarrhea, Weakness (unilateral) Patient Instructions Patient Instructions You were hospitalized due to recurrent syncope. You were noted to have Orthostatic blood pressure drop from sitting to standing.I have discontinued losartan. Telemetry negative for arrhythmia, echocardiogram unchanged from prior study, stress test borderline abnormal but probably artifact . You will need outpatient Holter monitoring. Please contact PCP to arrange Holter monitoring. You may need referral to case managers if symptoms continue. Follow-up Provider: Sravanthi Escalera MD Follow-up with PCP in: 1 week Vadim Granados MD Apr 08, 2017 10:12
--- NOTE | 2017-04-08 11:03 | NUR ---
Discharge Pt dc instructions given. RN explained to pt when getting up to make sure she was steady, not dizzy when getting up. If she does experience these symptoms Rn encouraged her to sit back down and then get back up in a minute or so. Travis at bedside for instructions. Pt up and dressed independently. IV dc'd cath intact. Pt transferred to . All belongings accounted for. UA transported pt via to car. Safe transfer.
--- NOTE | 2017-04-08 11:47 | PCM.DC.MED ---
Discharge Summary Date of Service Apr 08, 2017 Dates of Hospitalization Date of Hospital Admission Apr 06, 2017 at 17:43 Date of Discharge: Apr 08, 2017 Providers: Admitting Physician: Vadim Granados MD Primary Care Physician: Sravanthi Escalera MD Attending Physician: Vadim Granados MD Diagnosis at Time of Discharge Diagnosis at Time of Discharge #Recurrent syncope of unclear etiology, probably due to antihypertensive, present on admission, active Orthostatics positive. Discontinued losartan #Chest pain, typical, present on admission, active ACS ruled out #Ground level fall secondary to syncope, present on admission, active Chronic issues, present on admission, stable: #Hypertension #Hyperlipidemia #COPD, not in exacerbation #Dysthimia #Diabetes mellitus Procedures XRay, CTs & MRIs X-RAY CHEST, TWO VIEWS IMPRESSION: No acute cardiopulmonary abnormality Dictated by: Richard Bui M.D. on 04/06/2017 at 14:25 X-RAY PELVIS W/LAT HIP IMPRESSION: No fracture. No acute osseous lesion. If symptoms and/or clinical suspicion for pathology persists, further assessment with repeat radiographs or advanced imaging (e.g. CT, MRI or bone scan) may be helpful for further assessment. Dictated by: Kym Weston MD, PhD on 04/06/2017 at 16:35 CT BRAIN WITHOUT CONTRAST IMPRESSION: 1. No acute intracranial hemorrhage. 2. Small mucosal polyp versus mucous retention cyst of the right maxillary sinus. Dictated by: Aram Vera M.D. on 04/06/2017 at 15:24 Cardiac Echo Impression Interpretation Summary The left ventricle is normal in size, wall thickness, and systolic function without any focal wall motion abnormalities. The ejection fraction is estimated to be 60-65%. Assessment of diastolic parameters indicates a relaxation abnormality of the left ventricle, consistent with normal filling pressures. The right ventricle is normal in size, thickness and function. Pulmonary artery pressures cannot be estimated because of the lack of a measurable TR jet velocity. The left atrial size is normal. Right atrial size is normal. There is no significant valvular heart disease. The aortic root is normal size. No significant changes since prior study on 03/07/2016. Other Diagnostics PROCEDURE: 2 DAY STRESS TEST Rest and pharmacological stress myocardial perfusion SPECT with gated imaging and ejection fraction RADIOPHARMACEUTICAL: 21.4 mCi Tc-99m tetrafosmin IV at rest and 20.6 mCi Tc-99m tetrafosmin IV at peak effect of pharmacological stress. [id number] was performed. INDICATIONS: CP TECHNIQUE: Radiopharmaceutical was injected at peak stress test, and also at rest. SPECT images were obtained. SPECT myocardial perfusion images were displayed in short axis, horizontal long axis, and vertical long axis views. Gated images were reviewed using Diana software. COMPARISON: None. CARDIAC STRESS: A pharmacologic stress test was performed under the supervision of an attending staff, using an infusion of Regadenoson. Hemodynamic data: There is normal blood pressure and heart rate response to pharmacologic stress. Symptoms: The patient denied anginal chest pain. Aminophylline: None EKG: No diagnostic changes of ischemia; no ectopy. FINDINGS: Raw data: There is good myocardial uptake of radiotracer. No significant motion artifacts. Left ventricle function: Gated images demonstrate normal left ventricular wall thickening. No segmental wall motion abnormalities. Left ventricle resting end diastolic volume is 41 mL. Left ventricle stress ejection fraction is 88%; normal range is above 45%. Myocardial perfusion: There is a very small with mild intensity perfusion defect in the apical region noted during the supine stress imaging. On prior to stress imaging the defect action worsens. On the resting perfusion study the defect minimally improved. IMPRESSION: Probable borderline abnormal myocardial perfusion study. There is a very small perfusion defect noted in the apical region which slightly improves on resting. This could be consistent with very small amount of ischemia but cannot exclude artifact as well. LV ejection fraction and wall motion are both within normal limits. Given the size of the perfusion defect in the possibility that this is an artifact, this is a low risk study. Dictated by: Ubaldo Verdugo Jr., M.D. on 04/08/2017 at 9:20 Brief History per HPI Denise Bower is a 56 year old woman with past medical history significant for diabetes, spinal stenosis, hypertension, hyperlipidemia, COPD, hypothyroidism who presented to the [facility] ED today due to syncopal episode today resulting in a ground level fall. The patient notes that she has been having syncopal episodes last couple of years. Previously she had 1-3 episodes of syncope per year but in the last couple of months she has noticed that she has had more frequent episodes. In the last month she is actually high at 8 syncopal episodes. During my interview she denied any dizziness when she transitions from seated to standing or from laying to sitting up however stated other physicians that she has felt "woozy." Patient is also noted that she has been having chest pain before and after the episodes that is mid chest and moderate to severe. She has also noticed palpitations, skipped beats, irregular heartbeat as well as headache, vision changes, a "whooshing" sensation in her head. She also notes that she has had diaphoresis, nausea, shortness of breath. She also notes that she gets lower leg cramps when she walks up the stairs or up a hill. She has also noticed that she has felt overall weak with lightheadedness and loss of memory. She had a cardiac workup one year was negative. Patient underwent a transesophageal echo which showed largely normal heart. Patient suffered a fall from her last syncopal episode and hit her hip and her back. In the emergency department her vital signs were notable for a blood pressure of 105/55. CT of brain, x-ray of hips and x-ray of chest were all negative for acute processes. Patient was given Dilaudid for pain. Dr. Verdugo was contacted by the ED physician and recommended a cardiac workup. Hospital Course Denise Bower is a 56 year old woman with past medical history significant for diabetes, spinal stenosis, hypertension, hyperlipidemia, COPD, hypothyroidism who presented to the [facility] ED today due to syncopal episode today resulting in a ground level fall. #Recurrent syncope of unclear etiology, probably due to antihypertensive, present on admission, active Orthostatics positive. Discontinued losartan -Telemetry monitoring, unrevealing so far -ECHO unchanged from prior -Stress test with small defect ,probably artifact -Orthostatic vitals. 04/07 Sitting :BP 137/89, HR 65 standing: BP 116/71,SBP by 21 from sitting to standing. 04/08: Supine 113/69, sitting 124/78 , standing 100 /64. Discontinued losartan. Will advise on workup of dysautonomia outpatient and may need to use stockings if symptoms not controlled off losartan - Discussed with cardiology , she needs Holter monitor upon discharge. Advised patient to call her PCP and arrange Holter monitor. May need referral to cardiology if any finding -Patient also takes multiple pain medications and lorazepam. Advised to discuss with PCP and lower or discontinue narcotic and benzodiazepine load if possible #Chest pain, typical, present on admission, active -Risk factors include hypertension, hyperlipidemia, smoking. Diabetes is a CAD equivalent. Workup as above -Aspirin 81 mg -Continue statin -A1C 7.2 -Discussed case with cardiology #Ground level fall secondary to syncope, present on admission, active -Management as above Chronic issues, present on admission, stable: #Hypertension - orthostatic, losartan discontinued #Hyperlipidemia -Continue statin #COPD, not in exacerbation -Continue home medications #Dysthimia -Continue home medications #Diabetes mellitus -Hold PO medications -Monitor glucose CODE STATUS; FULL CODE discharge: Home Condition ON discharge stable Exam Vital Signs (Last) Date Time Temp Pulse Resp B/P Pulse Ox O2 Delivery O2 Flow Rate FiO2 04/08/17 10:42 99 100/64 04/08/17 09:38 36.6 16 96 Room Air Exam General: No acute distress, well-developed, well-nourished, appropriately interactive, appears older than stated age. HEENT: Normocephalic, atraumatic. External ears without defect. Pupils equal, round, and reactive to light and accommodation. Anicteric sclerae, moist conjunctivae, and no lid lag. Oropharynx free of erythema and cobble stoning with moist mucosa. Neck: Supple with full range of motion. No jugular venous distension. No bruits. No lymphadenopathy or thyromegaly. Cardiovascular: Regular rate and rhythm with no murmurs, rubs, or gallops appreciated. Pulmonary: Wheeze appreciated at the left mid lung. Normal respiratory effort with no use of accessory muscles. Abdomen: Bowel tones present. Soft, nontender, nondistended. No hepatosplenomegaly or masses appreciated. Extremities: No clubbing, cyanosis, edema, or lymphadenopathy appreciated. Skin: Normal temperature, turgor, and texture; no rash, ulcers, or subcutaneous nodules appreciated. Neurological: Cranial nerves grossly intact. Normal muscle strength, tone, and bulk. Reflexes, coordination, and sensory function within normal limits. No known gait impairment. Psychiatric: Normal mood and affect. Alert and oriented to person, place, and time. Test 04/06/17 14:20 04/06/17 23:45 04/07/17 05:58 Hemoglobin A1c 7.2% (4.8-5.6) Magnesium Level 1.8mg/dL (1.6-2.6) Total Bilirubin 0.4mg/dL (0.0-1.2) Aspartate Amino Transf (AST/SGOT) 11U/L (0-50) Alanine Aminotransferase (ALT/SGPT) 8U/L (0-32) Alkaline Phosphatase 82U/L (25-150) Total Protein 7.9g/dL (6.4-8.4) Albumin 4.4g/dL (3.4-5.0) Thyroid Stimulating Hormone (TSH) 15.900uIU/mL (0.450-4.500) Free Thyroxine 1.20ng/dL (0.82-1.77) Total Creatine Kinase 45U/L (21-215) Creatine Kinase MB 1.4ng/mL (0.0-5.3) Creatine Kinase MB % % (0.0-5.0) Troponin T 0.010ug/L (0.0-0.011) White Blood Count 6.5th/mm3 (3.8-10.1) Red Blood Count 4.26mil/mm3 (3.90-5.20) Hemoglobin 13.5g/dL (12.0-15.6) Hematocrit 39.6% (35.0-46.0) Mean Corpuscular Volume 93.0fL (81-100) Mean Corpuscular Hemoglobin 31.7pg (27.0-35.0) Mean Corpuscular Hemoglobin Concent 34.1% (32.0-37.0) Red Cell Distribution Width 12.6% (12.3-15.4) Platelet Count 278bil/L (150-400) Neutrophils (%) (Auto) 51.2% (40-74) Lymphocytes (%) (Auto) 34.0% (14-46) Monocytes (%) (Auto) 7.9% (4-12) Eosinophils (%) (Auto) 5.4% (0-5) Basophils (%) (Auto) 1.2% (0-3) Sodium Level 139mEq/L (134-144) Potassium Level 4.4mEq/L (3.5-5.2) Chloride Level 102mEq/L (97-108) Carbon Dioxide Level 24mmol/L (18-29) Blood Urea Nitrogen 18mg/dL (6-24) Creatinine 0.78mg/dL (0.57-1.00) Estimat Glomerular Filtration Rate 109mL/min (>59) Glucose Level 129mg/dL (60-99) Calcium Level 9.7mg/dL (8.5-10.1) Triglycerides Level 107mg/dL (0-149) Cholesterol Level 218mg/dL (100-199) LDL Cholesterol, Calculated 153.600mg/dL (0-99) VLDL Cholesterol 21.400mg/dL HDL Cholesterol 43mg/dL (>39) Cholesterol/HDL Ratio 5.07 (0.0-4.4) Cortisol 7.7ug/dL (.) Discharge Medications Discharge Medications Atorvastatin Calcium (Atorvastatin Calcium) 10 Mg Tablet 10 MG PO DAILY ( Reported) Beclomethasone Dipropionate (Qvar) 8.7 Gm Aer.w.adap 8.7 GM IH BID Prescribed by: GENE BLANTON MD Levothyroxine (Levoxyl) 150 Mcg Tablet 150 MCG PO DAILY (Reported) Lorazepam (Lorazepam) 2 Mg Tablet 2 MG PO TID (Reported) Metformin (Glucophage) 1,000 Mg Tablet 1,500 MG PO DAILYWD (Reported) Metformin (Glucophage) 1,000 Mg Tablet 1,000 MG PO QAM (Reported) Methocarbamol (Methocarbamol) 750 Mg Tablet 1,500 MG PO HS (Reported) Trazodone (Trazodone) 100 Mg Tablet 200 MG PO HS (Reported) As needed Albuterol Sulfate (Ventolin HFA Inhaler) 200 Puff/18 Gm Inhaler 2 PUFF INH Q4 PRN PRN For Wheezing (Reported) Atenolol (Atenolol) 50 Mg Tablet 50 MG PO DAILY PRN PRN For HYPERtension ( Reported) Hydrocodone-Acetaminophen 10-325 mg (Hydrocodone-Acetaminophen 10-325 mg) 1 Each Tablet 1-2 TABLET PO QID PRN PRN For Pain (Reported) 7 tabs/day maximum Ranitidine (Ranitidine) 150 Mg Capsule 150 MG PO DAILY PRN PRN For GI Cramps ( Reported) Followup Plan Disposition: Home Discharge Diet: Low fat, Low Sodium, Heart Healthy Discharge Activity: Limited until seen by PCP Patient Instructions You were hospitalized due to recurrent syncope. You were noted to have Orthostatic blood pressure drop from sitting to standing.I have discontinued losartan. Telemetry negative for arrhythmia, echocardiogram unchanged from prior study, stress test borderline abnormal but probably artifact . You will need outpatient Holter monitoring. Please contact PCP to arrange Holter monitoring. You may need referral to industry analyst if symptoms continue. Follow-up Provider: Sravanthi Escalera MD Follow-up with PCP in: 1 week copies to: Sravanthi Escalera MD, Melaku MD Apr 08, 2017 11:47
--- NOTE | 2017-04-08 14:32 | NUR ---
Social Work: Discharge / Multidisciplinary Rounds Data: Pt is on day 2 of hospitalization. EMR reviewed, pt discussed in rounds. states pt will d/c home today. Pt discharged home via POV. No d/c planning needed. Assessment: Pt who is independent at baseline, currently capable of self care. Plan: Pt discharged home via POV with grandson today. No d/c planning needs. RENATE Henning
== END 2017-04-08 10:55 | disposition home or self-care (01) ==
LOC: SED 13:30 → MPC 17:43 → MOC 04-07 18:13
PROVIDERS: ADMIT Internal Medicine; ATTEND Internal Medicine
DX: R55 Syncope and collapse (principal); R07.89 Other chest pain; E78.5 Hyperlipidemia, unspecified; E03.9 Hypothyroidism, unspecified; I10 Essential (primary) hypertension; J44.9 Chronic obstructive pulmonary disease, unspecified; E11.9 Type 2 diabetes mellitus without complications; K21.9 Gastro-esophageal reflux disease without esophagitis; F34.1 Dysthymic disorder; F17.210 Nicotine dependence, cigarettes, uncomplicated; Z88.6 Allergy status to analgesic agent; Z88.5 Allergy status to narcotic agent; Z88.8 Allergy status to other drugs, medicaments and biological substances; Z79.84 Long term (current) use of oral hypoglycemic drugs; Z79.899 Other long term (current) drug therapy
CPT/HCPCS: 36415; 70450; 71020; 73501; 78452; 80048; 80053; 80061; 82533; 82550; 82553; 83036; 83735; 84439; 84443; 84484; 85025; 93005; 93017; 96374; 96375; 96376; 99285; A9502; C8929; G0378; G0463; J1170; J2270; J2785